=== PATIENT | male | born 2000 | race African-American/Black ===

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

== ENCOUNTER 2021-08-15 16:57 | Emergency (ER) | payer OTHER, SELFPAY ==
[2021-08-15 16:58] VITALS: BP 163/89; PULSE 70; RESP 15; TEMP 37.1; O2SAT 100; BMI 28.2
[2021-08-15 17:23] VITALS: O2SAT 100
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
[2021-08-15] MEDS: Ibuprofen 200 MG Tablet 400 MG PO (18:23)
== END 2021-08-15 18:31 | disposition home or self-care (01) ==
PROVIDERS: Emergency Provider Emergency Medicine
DX: S16.1XXA Strain of muscle, fascia and tendon at neck level, initial encounter (principal); S39.012A Strain of muscle, fascia and tendon of lower back, initial encounter; F17.290 Nicotine dependence, other tobacco product, uncomplicated; Y92.410 Unspecified street and highway as the place of occurrence of the external cause; V43.51XA Car driver injured in collision with sport utility vehicle in traffic accident, initial encounter
CPT/HCPCS: 99283